=== PATIENT | male | born 1970 | race Caucasian/White ===

== ENCOUNTER → 2023-11-08 09:19 | Outpatient (BNVA) | payer BC, SELFPAY | PROVIDERS: Visit Provider Podiatrist Foot & Ankle Surgery | DX: M79.672 Pain in left foot; M25.872 Other specified joint disorders, left ankle and foot | CPT/HCPCS: 73630 ==

== ENCOUNTER 2023-12-12 17:08 | Outpatient (CLI) | payer BC, SELFPAY | END 2023-12-12 17:09 | disposition home or self-care (01) | LOC: SPT 17:14 | PROVIDERS: Visit Provider Podiatrist Foot & Ankle Surgery | DX: Z46.89 Encounter for fitting and adjustment of other specified devices (principal); M25.872 Other specified joint disorders, left ankle and foot; M79.673 Pain in unspecified foot | CPT/HCPCS: L3030 ==

== ENCOUNTER → 2024-06-20 08:55 | Outpatient (BNVA) | payer BC, SELFPAY | PROVIDERS: PCP Family Medicine; Visit Provider Family Medicine | DX: Z00.00 Encounter for general adult medical examination without abnormal findings (principal) | CPT/HCPCS: 80053; 80061; 84443; 85025 ==

== ENCOUNTER → 2024-09-29 08:45 | Outpatient (BNVA) | payer BC, SELFPAY | PROVIDERS: PCP Family Medicine; Visit Provider Podiatrist Foot & Ankle Surgery | DX: M79.672 Pain in left foot (principal); M25.872 Other specified joint disorders, left ankle and foot | CPT/HCPCS: 73630 ==

== ENCOUNTER 2025-02-03 12:54 | Outpatient (CLI) | payer BC, SELFPAY ==
--- NOTE | 2025-02-03 12:58 | XRR_ITS ---
PROCEDURE INFORMATION: Exam: XR Chest Exam date and time: 02/03/2025 1:04 PM Age: 54 years old Clinical indication: Pain; Chest pressure; PT states no complaints of lung related symptoms TECHNIQUE: Imaging protocol: Radiologic exam of the chest. Views: 2 views. COMPARISON: No relevant prior studies available. FINDINGS: Lungs: Pulmonary vessels are within normal limits. Right basilar calcified granuloma. Left lung is clear. Pleural spaces: No pneumothorax. Heart/Mediastinum: Cardiomediastinal silhouette is within normal limits. Bones/joints: Unremarkable. XR/XR chest 2V* [id number] IMPRESSION: No acute pulmonary finding.
== END 2025-02-03 12:55 | disposition home or self-care (01) ==
LOC: RAD 12:55
PROVIDERS: PCP Family Medicine; Visit Provider Family Medicine
DX: R07.89 Other chest pain (principal)
CPT/HCPCS: 71046